=== PATIENT | male | born 1940 | race Caucasian/White ===

== ENCOUNTER → 2019-10-27 09:50 | Outpatient (BNVA) | payer MEDICARE, BC, SELFPAY | PROVIDERS: PCP Nurse Practitioner Family; Visit Provider Family Medicine | DX: Z12.5 Encounter for screening for malignant neoplasm of prostate (principal); N40.0 Benign prostatic hyperplasia without lower urinary tract symptoms; M10.9 Gout, unspecified | CPT/HCPCS: 80053; 84153 ==

== ENCOUNTER → 2022-06-14 14:48 | Outpatient (BNVA) | payer MEDICARE, BC, SELFPAY | PROVIDERS: PCP Nurse Practitioner Family; Visit Provider Nurse Practitioner Family | DX: M25.551 Pain in right hip (principal); H61.22 Impacted cerumen, left ear | CPT/HCPCS: 73502 ==

== ENCOUNTER 2022-07-03 06:00 | Outpatient (RCR) | payer MEDICARE, BC, SELFPAY | END 2022-07-10 23:59 | disposition home or self-care (01) | LOC: TPT 06:00 | PROVIDERS: PCP Nurse Practitioner Family; Visit Provider Nurse Practitioner Family | DX: M25.551 Pain in right hip (principal) | CPT/HCPCS: 97110; 97162 ==

== ENCOUNTER 2022-07-11 06:00 | Outpatient (RCR) | payer MEDICARE, BC, SELFPAY | END 2022-08-10 23:59 | disposition home or self-care (01) | LOC: TPT 06:00 | PROVIDERS: PCP Nurse Practitioner Family; Visit Provider Nurse Practitioner Family | DX: M25.551 Pain in right hip (principal) | CPT/HCPCS: 97110 ==

== ENCOUNTER 2022-08-11 06:00 | Outpatient (RCR) | payer MEDICARE, BC, SELFPAY | END 2022-08-29 23:59 | disposition home or self-care (01) | LOC: TPT 06:00 | PROVIDERS: PCP Nurse Practitioner Family; Visit Provider Nurse Practitioner Family | DX: M25.551 Pain in right hip (principal) | CPT/HCPCS: 97110; 97164 ==

== ENCOUNTER 2022-11-27 11:18 | Outpatient (CLI) | payer OTHER, SELFPAY ==
--- NOTE | 2022-11-27 11:45 | USCV_ITS ---
Anurag Jarrod Age: 82 Gender: M : 1940 Exam Date: 11/27/2022 11:36 Ordering Phys: Sarahi Hernandez MD Technologist: Jennifer Morrison [place] [facility] [place] Risk Factors: CAD Previous Vascular Surgery: none Right Brachial BP: / Left Brachial BP: / Right Left Velocity (cm/s) Spectral Plaque Velocity (cm/s) Spectral Plaque Syst/Diast Broadening Syst/Diast Broadening 46.60/ 8.50 Prox CCA 57.50 / 10.90 66.80/ 12.40 Andrew Mid CCA 54.40 / 13.20 Andrew 26.20/ 5.90 Andrew Distal CCA 52.00 / 12.40 46.50/ 11.70 Andrew Prox ICA 34.20 / 5.10 Hetro 48.10/ 11.20 Andrew Mid ICA 32.80 / 7.15 Hetro 64.50/ 15.50 Distal ICA 66.80 / 16.30 72.00 ECA 93.10 0.97 ICA/CCA 1.16 Antegrade Vertebral Antegrade 32.00/ 5.90 cm/s 39.40/ 11.80 cm/s Tri Subclavian Tri 155.1 105.4 0 0 CONCLUSIONS Right ICA stenosis <50%. Moderate calcified atheromatous plaque right carotid bulb/ICA. Plaque Right CCA proximal. Left ICA stenosis <50%. Moderate calcified atheromatous plaque left carotid bulb/ICA. Intimal thickening in the common carotid arteries and internal carotid arteries bilaterally. Normal antegrade Doppler flow noted in the right vertebral artery. Normal antegrade Doppler flow noted in the left vertebral artery. Anjel Hampton MD (Electronically Signed) Final Date: 27 November 2022 13:48 S
== END 2022-11-27 11:19 | disposition home or self-care (01) ==
PROVIDERS: PCP Nurse Practitioner Family; Visit Provider Family Medicine
DX: I10 Essential (primary) hypertension (principal); I65.23 Occlusion and stenosis of bilateral carotid arteries; I25.10 Atherosclerotic heart disease of native coronary artery without angina pectoris
CPT/HCPCS: 93880

== ENCOUNTER → 2022-12-24 12:45 | Outpatient (BNVA) | payer OTHER, SELFPAY | PROVIDERS: PCP Nurse Practitioner Family; Referring Provider Family Medicine; Visit Provider Dermatology | DX: M67.442 Ganglion, left hand (principal); L82.1 Other seborrheic keratosis; L81.4 Other melanin hyperpigmentation; L57.8 Other skin changes due to chronic exposure to nonionizing radiation; I83.92 Asymptomatic varicose veins of left lower extremity; D22.5 Melanocytic nevi of trunk; L57.0 Actinic keratosis | CPT/HCPCS: 17000; 17003; 99203 ==

== ENCOUNTER 2023-11-19 06:21 | Outpatient (CLI) | payer OTHER, SELFPAY ==
--- NOTE | 2023-11-19 06:29 | US_ITS ---
WS: [id number] ULTRASOUND ABDOMEN LIMITED CLINICAL INFORMATION: Screening US COMPARISON: None. FINDINGS: Liver Size: Normal. Craniocaudal length: 13.7 cm. Echogenicity: Normal. Surface nodularity: None. Mass (size and location): None. Bile ducts Intrahepatic ducts: Normal. Common bile duct diameter: 0.5 cm. Gallbladder History of cholecystectomy. Cystic lesion in the gallbladder fossa with internal debris is similar in appearance compared to previous Pancreas Normal as visualized. Right kidney: Prior RIGHT nephrectomy Abdominal aorta and IVC Visualized portions are normal. Ascites: None. US/US abdomen limited [id number] IMPRESSION: 1. History of prior cholecystectomy. Normal common bile duct. 2. Cystic structure in the gallbladder fossa with internal debris is similar i n appearance compared to 2019. This may represent a dilated cystic duct remnant with sludge as previously suggested. 3. Prior RIGHT nephrectomy. 4. No other acute findings.
== END 2023-11-19 06:22 | disposition home or self-care (01) ==
LOC: RAD 06:21
PROVIDERS: PCP Nurse Practitioner Family; Visit Provider Family Medicine
DX: K82.8 Other specified diseases of gallbladder (principal); Z90.49 Acquired absence of other specified parts of digestive tract; Z90.5 Acquired absence of kidney
CPT/HCPCS: 76705

== ENCOUNTER → 2023-12-30 10:35 | Outpatient (BNVA) | payer OTHER, SELFPAY | PROVIDERS: PCP Nurse Practitioner Family; Visit Provider Nurse Practitioner Family | DX: L57.0 Actinic keratosis (principal); M67.442 Ganglion, left hand; L82.0 Inflamed seborrheic keratosis; D18.01 Hemangioma of skin and subcutaneous tissue; L81.4 Other melanin hyperpigmentation; L57.8 Other skin changes due to chronic exposure to nonionizing radiation; D69.2 Other nonthrombocytopenic purpura | CPT/HCPCS: 17000; 17110; 99213 ==